=== PATIENT | male | born 1965 | race Two or more races ===

== ENCOUNTER 2021-10-07 16:06 | Emergency (ER) | payer OTHER ==
[~2021-10-07] VITALS: Ht 175.3 cm; Wt 70.3 kg
[2021-10-07] MEDS ORDERED: DICLOFENAC SODI75 MG PO (16:55)
== END 2021-10-07 17:07 | disposition home or self-care (01) ==
LOC: ER 16:06
DX: M54.50 Low back pain, unspecified (principal)